=== PATIENT | male | born 1980 | race Caucasian/White ===

== ENCOUNTER 2023-03-07 13:37 | Day surgery (SDC) | payer OTHER, SELFPAY ==
--- NOTE | ~2023-03-07 | XR_ITS ---
EXAMINATION: XR chest 1V portable INDICATION: Food bolus just above the manubrium TECHNIQUE: Portable AP chest at 1507 hours COMPARISON: 08/21/2013 FINDINGS: The lungs are free of acute opacities. No pleural effusion or pneumothorax. The cardiomedia stinal silhouette is normal. IMPRESSION: 1. No acute cardiopulmonary abnormality. Reviewed, dictated and finalized at location [facility].
--- NOTE | ~2023-03-07 | XR_ITS ---
XR soft tissue neck 03/07/2023 18:22 Indication: Residual food bolus. Procedure: 2 views of the neck soft tissues Comparison: No prior studies for comparison. Findings: Normal prevertebral soft tissues. No abnormality of the epiglottis or area epiglottic folds . No significant enlargement of the adenoids or lingual tonsils. No subglottic narrowing. Lung apices are unremarkable. Impression: 1: No significant neck soft tissue examination. Reviewed, dictated and finalized at location A. Impression: 1: No significant neck soft tissue examination.
[2023-03-07 13:45] VITALS: BP 148/100; PULSE 80; RESP 16; TEMP 36.6; O2SAT 99
--- NOTE | 2023-03-07 15:15 | ED.GENADULT ---
[facility] - General Adult General Chief complaint: Skin/Abscess/Foreign Body Stated complaint: chicken stuck in throat Time Seen by Provider: 03/07/23 14:03 Source: patient Mode of arrival: ambulatory Limitations: no limitations History of Present Illness HPI narrative: This is a 42-year-old male who presents to the ED with chief complaint of possible food bolus impaction. Reports that he was eating a piece of chicken this morning around 11:00 when it felt like it got stuck. Reports that he is having difficulty swallowing his own saliva. Denies any chest pain, shortness of breath, nausea, vomiting, diarrhea, abdominal pain, fevers, chills. He states the same thing happened back in 2011 and he had to be taken to the endoscopy suite for definitive management Related Data Allergies Allergy/AdvReac Type Severity Reaction Status Date / Time halothane Allergy Severe CARDIAC Verified 10/11/22 09:42 ARREST Review of Systems Review of Systems: All systems as dictated in [facility] Past Medical History Medical History Elevated blood pressure reading without diagnosis of hypertension Esophageal reflux Marital conflict Overweight (BMI 25.0-29.9) Panic attacks Primary narcolepsy without cataplexy Stricture and stenosis of esophagus Visit for vasectomy evaluation Family History Family History Mother Diabetes mellitus Cerebrovascular accident Father Cerebrovascular accident Social History Social History Smoking status: Former smoker Smoking end date: 05/27/95 Alcohol intake: current Exam Narrative: GENERAL: Well-appearing, well-nourished, and in no acute distress. HEAD: Normocephalic, atraumatic. EYES: PERRLA and EOMI. ENT: Nares clear, no rhinorrhea or epistaxis. Mucous membranes moist. Oropharynx without tonsillar hypertrophy exudate or other lesions. Airway intact. Tolerating secretions. NECK: Supple. No adenopathy or masses. CHEST: No respiratory distress. Clear to auscultation. No wheezes rales or rhonchi HEART: Regular rate and rhythm. No murmur heard. Normal peripheral pulses. ABDOMEN: Soft, nontender, nondistended, normal active bowel sounds. MSK: Normal range of motion. No edema. SKIN: Warm, dry, no rash. NEURO: Alert and oriented x3. No focal deficits. PSYCH: Normal mood and affect. Course Course Emergency Course: Reevaluation 1700: Still feels that the food bolus is present in his esophagus. No relief with multiple attempts with carbonated beverages or glucagon here. Consult [facility] transfer: Spoke with Dr. Ortiz who states patient will need to be somewhere with an ICU bed and they do not have any at [facility]. Recommends contacting. Consult [facility] transfer: They have no beds at [facility]. Need to get in touch with GI at another facility. Awaiting call back. Consult Dr. Copeland (GI): He is not on ER call but will come in tonight to take patient to the endoscopy lab. Reevaluation 1919: Does not feel improved. Reports he is still having to spit up saliva. Vital Signs Vital signs: Vital Signs Temperature 97.8 F 03/07/23 13:45 Pulse Rate 80 03/07/23 13:45 Respiratory Rate 16 03/07/23 13:45 Blood Pressure 148/100 H 03/07/23 13:45 Pulse Oximetry 99 03/07/23 13:45 Oxygen Delivery Room Air 03/07/23 13:45 Temperature 97.8 F 03/07/23 13:45 Pulse Rate 80 03/07/23 13:45 Respiratory Rate 16 03/07/23 13:45 Blood Pressure 148/100 H 03/07/23 13:45 Pulse Oximetry 99 03/07/23 13:45 Oxygen Delivery Room Air 03/07/23 13:45 Medical Decision Making MDM Narrative Medical decision making narrative: This is a 42-year-old male who presents to the ED with chief complaint of possible food bolus impaction. He was eating chicken around 1130 this morning and has had the globus sensation ever since.
[2023-03-07] MEDS: ONDANSETRON INJ 4 MG/2 ML VIAL IV PUSH (15:20)
[2023-03-07] MEDS: GLUCAGON FOR INJ 1 MG VIAL IM (15:20)
[2023-03-07 18:52] LABS: Basophils Absolute Auto 0.1 K/mm3 (0.0-0.1); Basophils Percent Auto 1.4 % (0.2-1.2); Eosinophils Absolute Auto 0.3 K/mm3 (0-0.3); Eosinophils Percent Auto 4.4 % (0-4.4); Hematocrit 45.6 % (42.0-52.0); Hemoglobin 15.3 g/dL (14.0-18.0); Immature Granulocyte Absolute 0.02 K/mm3 (0.00-0.031); Immature Granulocyte Percent A 0.3 % (0-0.5); Lymphocytes Absolute Auto 1.78 K/mm3 (0.9-3.2); Lymphocytes Percent Auto 25.2 % (18.3-44.2); Mean Corpuscular HGB Conc 33.6 g/dl (32-36); Mean Corpuscular Hemoglobin 30.8 pg (26-34); Mean Corpuscular Volume 91.8 fl (80-100); Mean Platelet Volume 9.8 fl (7.4-10.4); Monocytes Absolute Auto 0.5 K/mm3 (0.1-0.6); Monocytes Percent Auto 7.4 % (2.6-8.5); Neutrophils Absolute Auto 4.3 K/mm3 (1.3-6.7); Neutrophils Percent Auto 61.3 % (45.5-73.1); Platelet Count Result 208 k/mm3 (150-375); Red Blood Count 4.97 M/mm3 (4.6-6.20); White Blood Count 7.1 K/mm3 (4.5-10.0)
[2023-03-07 19:07] LABS: Alanine Aminotransferase 30 U/L (6-50); Albumin Level 4.5 g/dL (3.5-5.1); Alkaline Phosphatase 55 U/L (38-126); Anion Gap 6 mmol/L (8-16); Aspartate Amino Transferase 30 U/L (17-59); Bilirubin,Total 0.7 mg/dL (0.2-1.3); Blood Urea Nitrogen 16 mg/dL (9-20); Calcium 8.8 mg/dL (8.4-10.2); Carbon Dioxide 29 mmol/L (22-30); Chloride 104 mmol/L (98-107); Estimated CRCL calculation 142 ml/min; Estimated Glomerular Filt Rate > 60; Glucose 92 mg/dL (65-110); Potassium 4.1 mmol/L (3.4-5.0); Sodium 139 mmol/L (137-145)
[2023-03-07 19:12] LABS: Partial Thromboplastin Time 27.4 SECONDS (22.3-36.8); Prothrombin Time 13.5 Seconds (11.1-14.7)
[2023-03-07 19:58] VITALS: BP 149/95; PULSE 73; RESP 17; O2SAT 100
[2023-03-07 20:17] VITALS: BP 140/84; PULSE 65; RESP 18; TEMP 36.6; O2SAT 100
--- NOTE | 2023-03-07 20:21 | WPDANESEPPF ---
Anes - Initial Pre Proc Eval Procedure: Operation Date: 03/07/23 20:00 Proposed Procedures p Esophagogastroduodenoscopy - Sandro Puckett MD Date/Time: 03/07/23 20:21 Surgeon: Sandro Puckett MD Pre Op Diagnosis: chicken stuck in throat Patient Data Age: 42 Gender: M Height: 1.8 m Weight: 90.7 kg Last Vital Signs Temp 36.6 C 03/07/23 13:45 Pulse 73 03/07/23 19:58 Resp 17 03/07/23 19:58 BP 149/95 H 03/07/23 19:58 Pulse Ox 100 03/07/23 19:58 O2 Del Method Room Air 03/07/23 13:45 Allergies Allergy/AdvReac Type Severity Reaction Status Date / Time halothane Allergy Severe CARDIAC Verified 03/07/23 20:17 ARREST Laboratory Tests 03/07/23 18:46 WBC 7.1 K/mm3 (4.5-10.0) RBC 4.97 M/mm3 (4.6-6.20) Hgb 15.3 g/dL (14.0-18.0) Hct 45.6 % (42.0-52.0) MCV 91.8 fl (80-100) MCH 30.8 pg (26-34) MCHC 33.6 g/dl (32-36) RDW 14.0 % (11.5-14.5) Plt Count 208 k/mm3 (150-375) MPV 9.8 fl (7.4-10.4) Immature Gran % (Auto) 0.3 % (0-0.5) Neut % (Auto) 61.3 % (45.5-73.1) Lymph % (Auto) 25.2 % (18.3-44.2) [place]idge % (Auto) 7.4 % (2.6-8.5) Eos % (Auto) 4.4 % (0-4.4) Baso % (Auto) 1.4 H % (0.2-1.2) Lymph # (Auto) 1.78 K/mm3 (0.9-3.2) Dod[place]idge # (Auto) 0.5 K/mm3 (0.1-0.6) Eos # (Auto) 0.3 K/mm3 (0-0.3) Baso # (Auto) 0.1 K/mm3 (0.0-0.1) Abs Immat Gran (auto) 0.02 K/mm3 (0.00-0.031) Absolute Neuts (auto) 4.3 K/mm3 (1.3-6.7) Absolute Nucleated RBC 0.0 K/mm3 (0.0-0.012) Nucleated RBC % 0.0 % (0.0-0.2) PT 13.5 Seconds (11.1-14.7) INR 1.0 APTT 27.4 SECONDS (22.3-36.8) Sodium 139 mmol/L (137-145) Potassium 4.1 mmol/L (3.4-5.0) Chloride 104 mmol/L (98-107) Carbon Dioxide 29 mmol/L (22-30) Anion Gap 6 L mmol/L (8-16) BUN 16 mg/dL (9-20) Creatinine 0.60 L mg/dL (0.7-1.3) Estim Creat Clear Calc 142 ml/min Estimated GFR > 60 (59 - ) Glucose 92 mg/dL (65-110) Calcium 8.8 mg/dL (8.4-10.2) Total Bilirubin 0.7 mg/dL (0.2-1.3) AST 30 U/L (17-59) ALT 30 U/L (6-50) Alkaline Phosphatase 55 U/L (38-126) Total Protein 8.0 g/dL (6.3-8.2) Albumin 4.5 g/dL (3.5-5.1) Patient hx anesthesia problems: none Family hx anesthesia problems: none Results Review: All pre-operative results and documents have been reviewed as part of the pre-operative evaluation. [facility] Past Medical History Medical History Elevated blood pressure reading without diagnosis of hypertension Esophageal reflux Marital conflict Overweight (BMI 25.0-29.9) Panic attacks Primary narcolepsy without cataplexy Stricture and stenosis of esophagus Visit for vasectomy evaluation Family History Family History Mother Diabetes mellitus Cerebrovascular accident Father Cerebrovascular accident Social History Social History Smoking status: Former smoker Smoking end date: 05/27/95 Alcohol intake: current Anes - Eval Final PreProcedure Day of Procedure 03/07/23 20:21 Patient weight: overweight Heart: regular rate and rhythm Lungs: clear to auscultation Airway: Mallampati scale class II Neurological: alert and oriented Last oral intake: >/= 8 hours ASA classification: II Emergent: no Anesthetic plan: proceed Anesthesia type and monitoring: general GIVS and standard monitoring Results Review: All pre-operative results and documents have been reviewed as part of the pre-operative evaluation. Informed Consent: The patient's anesthetic plan and its attendant risks and benefits were discussed with the patient/family/POA. Questions were solicited and answers provided to the satisfaction of the patie
--- NOTE | 2023-03-07 20:28 | PM.HPGS ---
History of Present Illness History of Present Illness Consent: Risks, benefits, and alternatives have been discussed and questions answered. Patient agrees to proceed with procedure. Chief complaint: chicken stuck in throat Narrative: Avelino Fitch is a 42 year old male here with food bolus after had chicken, still unable to swallow own saliva. Had food bolus about 10 years ago and briefly took ppi. Intermittent dysphagia after solids. Review of Systems Constitutional: Constitutional: Denies headache(s) and Denies weakness Eyes: Eyes: Denies blurry vision ENT: Reports Normal hearing present, Denies headache(s) and Denies neck pain Cardiovascular: Cardiovascular: Denies chest pain and Denies dyspnea Respiratory: Respiratory: Denies dyspnea Gastrointestinal: Gastrointestinal: Reports no additional gastrointestinal complaints Genitourinary: Genitourinary: Denies dysuria Musculoskeletal: Musculoskeletal: Denies neck pain Integumentary/Breasts: Skin/Breast: Denies dry skin Neurologic: Reports Normal hearing present, Denies headache(s) and Denies weakness Psychiatric: Psychiatric: Denies anxiety Endocrine: Endocrine: Denies change in body appearance Hematologic/Lymphatic: Hematologic/Lymphatic: Denies easy bleeding Allergic/Immunologic: Allergic/Immunologic: Denies urticaria PMFSH Past Medical History Medical History (Updated 03/07/23 @ 20:30 by Sandro Puckett MD) Elevated blood pressure reading without diagnosis of hypertension Esophageal reflux Food impaction of esophagus Marital conflict Overweight (BMI 25.0-29.9) Panic attacks Primary narcolepsy without cataplexy Stricture and stenosis of esophagus Visit for vasectomy evaluation Family History Family History Mother Diabetes mellitus Cerebrovascular accident Father Cerebrovascular accident Social History Social History Smoking status: Former smoker Smoking end date: 05/27/95 Alcohol intake: current Meds Home Medications and Allergies Allergies Allergy/AdvReac Type Severity Reaction Status Date / Time halothane Allergy Severe CARDIAC Verified 03/07/23 20:17 ARREST Vital Signs Vital Signs - 24 hr 03/07/23 13:45 03/07/23 19:58 Temperature 97.8 F Pulse Rate 80 73 Respiratory Rate 16 17 Blood Pressure 148/100 H 149/95 H Pulse Oximetry 99 100 Oxygen Delivery Room Air Exam Const: General: comfortable and no acute distress HENMT: Face/Nose/Sinus: Normal nares present Eyes: General: appearance normal, both eyes and all related structures Neck: Neck: no JVD Resp: Auscultation: clear to auscultation bilaterally Cardio: Rate: regular rate Rhythm: regular rhythm GI: Inspection: non-distended GI Palp: Yes Soft to palpation Skin: General skin exam: normal color Neuro: General: gait normal Speech: normal speech Extrem: General: normal to inspection Psych: Mental Status: mental status grossly normal Assessment and Plan Assessment and plan (1) Dysphagia: Code(s): R13.10 - Dysphagia, unspecified Status: Acute (2) Food impaction of esophagus: Code(s): T18.128A - Food in esophagus causing other injury, initial encounter; [id number] - Food entering into or through a natural orifice, initial encounter Status: Acute Assessment and Plan: will proceed with urgent EGD wonder if could have EoE- will get biopsies
[2023-03-07] MEDS: LACTATED RINGERS 1,000 ML 150 ML IV CONT (20:29)
[2023-03-07 20:39] VITALS: BP 125/69; PULSE 88; RESP 22; O2SAT 98
[2023-03-07 20:49] VITALS: BP 133/87; PULSE 84; RESP 20; O2SAT 98
[2023-03-07 20:59] VITALS: BP 134/77; PULSE 70; RESP 20; O2SAT 100
--- NOTE | 2023-04-08 11:06 | SUR.PHASEII ---
Patient's discharge time documented in the transfer screen instead of the discharge plan screen. Information in transfer screen moved to the discharge plan screen as patient was discharged from the Endoscopy area and not transferred to another department after his procedure.
== END 2023-03-07 21:10 | disposition home or self-care (01) ==
LOC: ANHED 15:06 → ANHENDO 19:27
PROVIDERS: Emergency Provider Physician Assistant; PCP Family Medicine; Visit Provider Internal Medicine Gastroenterology
PROC: 0DJ08ZZ Inspection of Upper Intestinal Tract, Via Natural or Artificial Opening Endoscopic (ICD-10-PCS; CPT 43235; principal; 2023-03-07 20:00)
DX: T18.128A Food in esophagus causing other injury, initial encounter (principal); W44.F3XA Food entering into or through a natural orifice, initial encounter; R13.19 Other dysphagia; K22.2 Esophageal obstruction; K21.00 Gastro-esophageal reflux disease with esophagitis, without bleeding; Z87.891 Personal history of nicotine dependence
CPT/HCPCS: 43247; 43239; 36415; 70360; 71045; 80053; 85025; 85610; 85730; 88305; 96372; 96374; 99285; J1610; J2405; J2704; J7120

== ENCOUNTER 2024-07-26 08:41 | Emergency (ER) | payer OTHER, SELFPAY ==
[2024-07-26 08:49] VITALS: BP 139/87; PULSE 70; RESP 16; TEMP 37.1; O2SAT 100
--- NOTE | 2024-07-26 09:17 | ED.URI ---
HPI - URI/Sore Throat General Chief Complaint: Upper Respiratory Infection Stated Complaint: Sinus Time Seen by Provider: 07/26/24 09:19 Source: patient, RN notes reviewed and old records reviewed Mode of arrival: ambulatory Limitations: no limitations History of Present Illness HPI Narrative: Patient presents with complaints of sinus pain and pressure, right eye discharge. He reports that sinus symptoms began about a week ago. He has been taking [id number] medications and trying to use a Neti pot to use his symptoms. He reports that he feels as though symptoms started to get worse yesterday despite his efforts. States that yesterday he began to have a lot of drainage from the right eye and some swelling surrounding the affected eye. This morning the affected eye was stuck shut. He denies any injury or trauma. He denies any fever, chills, sweats. He does affirm that he is more tired than normal Related Data Home Medications ?Medication ?Instructions ?Recorded ?Confirmed ?Last Taken ?Type clotrimazole-betamethasone 1 applic topical 07/26/24 Unknown History %-0.05 % topical cream griseofulvin ultramicrosize 250 mg mg 07/26/24 Unknown History tablet Allergies Allergy/AdvReac Type Severity Reaction Status Date / Time halothane Allergy Severe CARDIAC Verified 07/26/24 09:36 ARREST Review of Systems Review of Systems: All systems reviewed & are unremarkable except as noted in HPI and below Constitutional: Constitutional: Reports no additional constitutional complaints Eyes: Eyes: Reports as per HPI, Reports eye discharge and Reports irritation ENT: Reports system reviewed and no additional complaints, except as documented, Reports nasal congestion, Reports nasal discharge, Reports sinus pain and Reports sinus pressure Cardiovascular: Cardiovascular: Reports no additional cardiovascular complaints Respiratory: Respiratory: Reports no additional respiratory complaints Gastrointestinal: Gastrointestinal: Reports no additional gastrointestinal complaints [facility] Past Medical History Medical History Elevated blood pressure reading without diagnosis of hypertension Eosinophilic esophagitis Esophageal reflux Food impaction of esophagus Marital conflict Overweight (BMI 25.0-29.9) Panic attacks Primary narcolepsy without cataplexy Stricture and stenosis of esophagus Visit for vasectomy evaluation Family History Family History Mother Diabetes mellitus Cerebrovascular accident Father Cerebrovascular accident Social History Social History Smoking status: Former smoker Smoking end date: 05/27/95 Alcohol intake: current Alcohol use details: occasionally Substance use: never Substance use type: does not use Comments At the time of my signature, I reviewed and agree with the nursing past medical, surgical, social, and family history. There is no relevant family history pertinent to the patient complaint. Exam Const: General: cooperative, no acute distress, alert and awake Orientation/consciousness: oriented to person, oriented to place and oriented to time HENMT: Head: normal to inspection Ears: TM abnormal with fluid behind the TM bilateral Face/Nose/Sinus: sinus tenderness (right maxillary) Mouth: Yes moist mucous membranes Throat: posterior oropharynx abnormal erythema Eyes: Conjunctivae: conjunctival abnormality right discharge Sclera: scleral abnormality right scleral injection Pupils: Equal, round and reactive pupils present EOM: EOMs intact bilaterally Resp: Effort & Inspection: normal respiratory effort and able to speak in complete sentences Auscultation: clear to auscultation bilaterally, no crackles, no rales, no rhonchi and no wheezes Cardio: Palpation: normal PMI Rate: regular rate Rhythm: regular rhythm Heart sounds: S1 normal heart sound present and S2 normal heart sound present Neuro: General: oriented to person, oriented to place and oriented to time Cranial nerves: Yes CN's II-XII intact bilaterally Psych: Appearance: grossly normal Thought process: Normal thought process present Insight: Good insight present (Psych) Judgement: Good judgement present (Psych) Course Course Level of Care: Express Care Visit Vital Signs Vital signs: Vital Signs Temperature 98.7 F 07/26/24 08:49 Pulse Rate 70 07/26/24 08:49 Respiratory Rate 16 07/26/24 08:49 Blood Pressure 139/87 07/26/24 08:49 Pulse Oximetry 100 07/26/24 08:49 Oxygen Delivery Room Air 07/26/24 08:49 Temperature 98.7 F 07/26/24 08:49 Pulse Rate 70 07/26/24 08:49 Respiratory Rate 16 07/26/24 08:49 Blood Pressure 139/87 07/26/24 08:49 Pulse Oximetry 100 07/26/24 08:49 Oxygen Delivery Room Air 03/02/25 08:49 Reviewed MDM - URI/Sore Throat MDM Narrative Medical decision making narrative: History and exam consistent with sinusitis. Start prednisone and p.o. antibiotics, also adding tobramycin given involvement of the right eye. Patient is nontoxic appearing, stable for discharge home. Discharge instructions reviewed with patient, as well as provided in writing per nursing staff. The instructions also include specific and strict return/GO TO THE ER as well as f/u information. All questions have been answered, and the patient deny any further questions with discharge and discharge plan. Some parts of this dictation were generated by voice recognition software and may contain typographical and/or grammatical inaccuracies. Differential Diagnosis Differential diagnosis: Likely upper respiratory infection, otitis media, sinusitis and viral infection Medical Records Attestation: I reviewed the patient's medical records. Discharge Plan Discharge Clinical Impression: Sinusitis Qualifiers: Sinusitis location: maxillary Chronicity: acute Recurrence: not specified as recurrent Qualified Code(s): J01.00 - Acute maxillary sinusitis, unspecified Patient Disposition: Home, Self-Care Condition: Stable Instructions: Antibiotic Form, Sinusitis (ED) Additional Instructions: Take medications as prescribed. Follow with primary care provider. Emergency department for new or worse symptoms Patient Language: Armenian Prescriptions: New amoxicillin-pot clavulanate 875-125 mg tablet 1 tablet PO Q12H Qty: 20 0RF tobramycin 0.3 % drops 1 drp RIGHT EYE Q4H 7 Days Qty: 5 0RF prednisone 50 mg tablet 50 mg PO DAILY Qty: 5 0RF amoxicillin-pot clavulanate 875-125 mg tablet 1 tablet PO Q12H Qty: 20 0RF tobramycin 0.3 % drops 1 drp RIGHT EYE Q4H 7 Days Qty: 5 0RF prednisone 50 mg tablet 50 mg PO DAILY Qty: 5 0RF No Action clotrimazole-betamethasone 1-0.05 % cream TOPICAL griseofulvin ultramicrosize 250 mg tablet omeprazole 40 mg capsule,delayed release(DR/EC) 40 mg PO DAILY Qty: 90 3RF Follow-up/Referrals: Olivier Cohn MD [Primary Care Provider] - 2 Weeks Time of Disposition: 09:38
== END 2024-07-26 09:45 | disposition home or self-care (01) ==
PROVIDERS: Emergency Provider Nurse Practitioner Family; PCP Family Medicine
DX: J01.00 Acute maxillary sinusitis, unspecified (principal); Z87.891 Personal history of nicotine dependence; K20.0 Eosinophilic esophagitis
CPT/HCPCS: 99213; G0463

== ENCOUNTER 2024-08-07 12:48 | Outpatient (CLI) | payer OTHER, SELFPAY ==
--- NOTE | ~2024-08-07 | US_ITS ---
Testicular ultrasound with doppler. Indication: Left testicular pain. Technique: Real-time sonography the scrotum was performed. Color flow Doppler and Doppler spectral an alysis were performed. Findings: The testes are homogeneous in echotexture bilaterally. There is no evidence of an intrates ticular mass. The right testis measures 4.2 x 2.2 x 3.2 cm and the left 2.8 x 2.5 x 2.8 cm. There is color-flow seen to both testes. Arterial and venous spectral waveforms are seen in both testes. There is no sonographic evidence of torsion. The head of the epididymis is visualized bilaterally and is within normal limits. Possible small left inguinal hernia noted. Impression: No testicular mass or torsion. Possible small left inguinal hernia. Reviewed, dictated and finalized at [facility]. Impression: No testicular mass or torsion. Possible small left inguinal hernia.
== END 2024-08-07 12:49 | disposition home or self-care (01) ==
LOC: GOSHIMG 12:49
PROVIDERS: PCP Family Medicine; Visit Provider Nurse Practitioner Family
DX: N50.812 Left testicular pain (principal); R10.32 Left lower quadrant pain
CPT/HCPCS: 76870; 93976